=== PATIENT | female | born 1990 | race Two or more races ===

== ENCOUNTER 2023-10-10 10:13 | Emergency (ER) | payer OTHER ==
[~2023-10-10] VITALS: Ht 152.4 cm; Wt 72.6 kg
[2023-10-10 10:47] LABS: Urine Bacteria None Seen /hpf (None Seen)
[2023-10-10 10:54] LABS: Urine Blood 1+ /uL (Negative); Urine Clarity Turbid (Clear); Urine Color Light-Orange (Yellow); Urine Protein, UAD 1+ (Negative); Urine Specific Gravity 1.023 (1.001-1.035); Urine Urobilinogen Normal (Negative); Urine WBC 36 /hpf (0 - 5); Urine pH 6.5 (5.0-9.0)
[2023-10-10 11:16] VITALS: BP 135/99; PULSE 114; RESP 16; TEMP 98.5; O2SAT 94
[2023-10-10 11:37] LABS: Basophils # (auto) 0 10 ^3/uL (0-0.2); Basophils % (auto) 0.5 % (0.0-2.0); Eosinophils # (auto) 0 10 ^3/uL (0-0.8); Eosinophils % (auto) 0.3 % (0.0-7.0); Hematocrit 43.6 % (36.0-46.0); Hemoglobin 15.3 g/dL (12.2-16.2); Lymphocytes % (auto) 19.5 % (10.0-50.0); Mean Corpuscular Volume 94.3 fL (80.0-100.0); Monocytes % (auto) 9.2 % (0.0-12.0); Neutrophils # (auto) 7.4 10 ^3/uL (1.6-8.6); Neutrophils % (auto) 70.5 % (37.0-80.0); Red Blood Cells 4.63 10^6/uL (4.0-5.20); White Blood Cell 10.5 10^3/uL (4.4-10.8)
[2023-10-10] MEDS ORDERED: ACET-1080 PO (11:57)
[2023-10-10] MEDS ORDERED: CEPH500C PO (11:57)
[2023-10-10] MEDS ORDERED: ZOFR4T PO (11:57)
== END 2023-10-10 12:07 | disposition home or self-care (01) ==
LOC: ER 10:13
DX: O20.0 Threatened abortion (principal); R10.2 Pelvic and perineal pain; O23.41 Unspecified infection of urinary tract in pregnancy, first trimester; J01.90 Acute sinusitis, unspecified; N39.0 Urinary tract infection, site not specified; Z3A.11 11 weeks gestation of pregnancy
CPT/HCPCS: 36415; 76801; 81001; 84702; 85025

== ENCOUNTER 2024-01-02 12:06 | Emergency (ER) | payer OTHER ==
[~2024-01-02] VITALS: Ht 152.4 cm; Wt 74.7 kg
[~2024-01-02 12:06] MED LIST: ACET-1080 PO; CEPH500C PO; ZOFR4T PO
[2024-01-02 12:26] VITALS: BP 132/107; PULSE 99; RESP 18; O2SAT 98
== END 2024-01-02 14:00 | disposition short-term general hospital (02) ==
LOC: ER 12:06
DX: O16.2 Unspecified maternal hypertension, second trimester (principal); Z3A.22 22 weeks gestation of pregnancy; Z79.899 Other long term (current) drug therapy

== ENCOUNTER 2024-01-15 08:09 | Emergency (ER) | payer OTHER ==
[~2024-01-15] VITALS: Ht 152.4 cm; Wt 75.4 kg
[2024-01-15 08:11] VITALS: BP 157/98; PULSE 96; RESP 18; O2SAT 97
== END 2024-01-15 09:00 | disposition short-term general hospital (02) ==
LOC: ER 08:09
DX: O16.2 Unspecified maternal hypertension, second trimester (principal); O46.92 Antepartum hemorrhage, unspecified, second trimester; Z3A.25 25 weeks gestation of pregnancy; Z79.899 Other long term (current) drug therapy